=== PATIENT | male | born 1990 | race Caucasian/White ===

== ENCOUNTER 2020-10-08 12:30 | Emergency (ER) | payer OTHER ==
[~2020-10-08 12:30] MED LIST: ADMELOG SO100 UNIT/1 SC; AUGMENTIN 875-1 EACH PO; BACTRIM 400-801 EACH PO; BASAGLAR K100 UNIT/1 SC; NORCO 5-325 TA1 EACH PO; PAXIL20 MG PO; ZYVOX600 MG PO
[2020-10-08 13:16] LABS: BASOPHIL 0.5 % (0-2); EOSINOPHIL 1.7 % (0-5); HCT 41.9 % (42.0-52.0); HGB 14.1 g/dl (13.2-18.0); LYMPHOCYTE 29.3 % (15-48); MCH 29.6 pg (25.0-31.0); MCHC 33.7 g/dL (32.0-36.0); MCV 87.8 fL (78.0-100.0); MONOCYTE 7.6 % (0-12); MPV 9.4 fL (6.0-9.5); NEUTROPHIL 60.4 % (41-80); NRBC 0; PLT 282 K/uL (150-400); RBC 4.77 M/uL (4.70-6.00); RDW 12.4 % (11.5-14.0); WBC 6.5 K/uL (4.0-10.5)
[2020-10-08 13:24] LABS: BILIRUBIN NEGATIVE (NEGATIVE); BLOOD NEGATIVE Ery/uL (NEGATIVE); CLARITY CLEAR (CLEAR); COLOR YELLOW (YELLOW); GLUCOSE (U) TRACE mg/dL (NORMAL); LEUKOCYTES NEGATIVE Leu/uL (NEGATIVE); NITRITE NEGATIVE (NEGATIVE); PROTEIN NEGATIVE (NEGATIVE); UROBILINOGEN 0.2 mg/dL (0.2-1.0)
[2020-10-08 13:30] LABS: AMPHETAMINES NEGATIVE (NEGATIVE); BARBITURATES NEGATIVE (NEGATIVE); ECSTASY (MDMA) NEGATIVE (NEGATIVE); MARIJUANA (THC) NEGATIVE (NEGATIVE); METHADONE NEGATIVE (NEGATIVE); OPIATES NEGATIVE (NEGATIVE); OXYCODONE NEGATIVE (NEGATIVE)
[2020-10-08 13:49] LABS: ALBUMIN 3.2 g/dL (3.4-5.0); BILIRUBIN - TOTAL 0.3 mg/dL (0.2-1.0); BUN/CREAT RATIO (CALC) 18.1 RATIO; CREATININE 0.83 mg/dL (0.67-1.17); GLOBULIN (CALCULATION) 3.2 g/dL; POTASSIUM 3.9 mmol/L (3.5-5.1); TOTAL PROTEIN 6.4 g/dL (6.4-8.2)
== END 2020-10-08 14:18 | disposition home or self-care (01) ==
LOC: FER 12:30
PROVIDERS: Nurse Practitioner Family
DX: E10.649 Type 1 diabetes mellitus with hypoglycemia without coma (principal); F17.290 Nicotine dependence, other tobacco product, uncomplicated
CPT/HCPCS: 36415; 80053; 80305; 81003; 85025; 99283

== ENCOUNTER 2020-11-18 12:06 | Emergency (ER) | payer OTHER ==
[2020-11-18 12:46] LABS: BASOPHIL 0.3 % (0-2); EOSINOPHIL 0.3 % (0-5); HCT 47.3 % (42.0-52.0); HGB 15.6 g/dl (13.2-18.0); LYMPHOCYTE 9.9 % (15-48); MCH 29.8 pg (25.0-31.0); MCV 90.4 fL (78.0-100.0); MONOCYTE 5.2 % (0-12); MPV 9.6 fL (6.0-9.5); NEUTROPHIL 83.9 % (41-80); NRBC 0; PLT 275 K/uL (150-400); RBC 5.23 M/uL (4.70-6.00); RDW 12.8 % (11.5-14.0); WBC 11.6 K/uL (4.0-10.5)
[2020-11-18 13:03] LABS: ALBUMIN 4.1 g/dL (3.4-5.0); BILIRUBIN - TOTAL 0.5 mg/dL (0.2-1.0); BUN/CREAT RATIO (CALC) 19.2 RATIO; CREATININE 0.78 mg/dL (0.67-1.17); GLOBULIN (CALCULATION) 3.8 g/dL; POTASSIUM 4.3 mmol/L (3.5-5.1); TOTAL PROTEIN 7.9 g/dL (6.4-8.2)
[2020-11-18 13:09] LABS: BILIRUBIN NEGATIVE (NEGATIVE); BLOOD NEGATIVE Ery/uL (NEGATIVE); CLARITY CLEAR (CLEAR); COLOR YELLOW (YELLOW); GLUCOSE (U) 3+ mg/dL (NORMAL); LEUKOCYTES NEGATIVE Leu/uL (NEGATIVE); NITRITE NEGATIVE (NEGATIVE); PROTEIN NEGATIVE (NEGATIVE); UROBILINOGEN 0.2 mg/dL (0.2-1.0)
== END 2020-11-18 16:51 | disposition home or self-care (01) ==
LOC: FER 12:06
PROVIDERS: Emergency Medicine
DX: E11.649 Type 2 diabetes mellitus with hypoglycemia without coma (principal); T38.3X5A Adverse effect of insulin and oral hypoglycemic [antidiabetic] drugs, initial encounter; F17.290 Nicotine dependence, other tobacco product, uncomplicated; Z79.4 Long term (current) use of insulin
CPT/HCPCS: 36415; 80053; 81003; 85025; 99285

== ENCOUNTER 2020-12-11 16:24 | Emergency (ER) | payer OTHER ==
[2020-12-11 17:00] LABS: BASOPHIL 0.3 % (0-2); EOSINOPHIL 0.3 % (0-5); HCT 43.4 % (42.0-52.0); HGB 14.7 g/dl (13.2-18.0); LYMPHOCYTE 17.6 % (15-48); MCH 29.8 pg (25.0-31.0); MCHC 33.9 g/dL (32.0-36.0); MPV 9.2 fL (6.0-9.5); NEUTROPHIL 75.6 % (41-80); NRBC 0; PLT 314 K/uL (150-400); RBC 4.93 M/uL (4.70-6.00); RDW 12.5 % (11.5-14.0); WBC 11.4 K/uL (4.0-10.5)
[2020-12-11 17:23] LABS: BUN/CREAT RATIO (CALC) 15.2 RATIO; CREATININE 0.79 mg/dL (0.67-1.17); POTASSIUM 3.5 mmol/L (3.5-5.1)
== END 2020-12-11 19:57 | disposition home or self-care (01) ==
LOC: FER 16:24
PROVIDERS: Nurse Practitioner Family
DX: E10.649 Type 1 diabetes mellitus with hypoglycemia without coma (principal)
CPT/HCPCS: 36415; 80048; 85025; 99283

== ENCOUNTER 2020-12-23 15:38 | Inpatient (IN) | payer OTHER ==
[~2020-12-23] VITALS: Ht 177.8 cm; Wt 85.8 kg
[2020-12-23 16:15] LABS: BASOPHIL 0.5 % (0-2); EOSINOPHIL 0.1 % (0-5); HCT 50.6 % (42.0-52.0); HGB 17.2 g/dl (13.2-18.0); LYMPHOCYTE 10.1 % (15-48); MCH 29.9 pg (25.0-31.0); MONOCYTE 4.5 % (0-12); MPV 10.5 fL (6.0-9.5); NEUTROPHIL 84.2 % (41-80); NRBC 0; PLT 368 K/uL (150-400); RBC 5.75 M/uL (4.70-6.00); WBC 18.5 K/uL (4.0-10.5)
[2020-12-23 16:58] LABS: ALBUMIN 4.7 g/dL (3.4-5.0); BILIRUBIN - TOTAL 0.4 mg/dL (0.2-1.0); BUN/CREAT RATIO (CALC) 23.3 RATIO; CREATININE 1.33 mg/dL (0.67-1.17); GLOBULIN (CALCULATION) 4.3 g/dL; POTASSIUM 5.4 mmol/L (3.5-5.1)
[2020-12-23 17:53] LABS: BILIRUBIN NEGATIVE (NEGATIVE); BLOOD 2+ Ery/uL (NEGATIVE); CLARITY CLEAR (CLEAR); COLOR YELLOW (YELLOW); GLUCOSE (U) 3+ mg/dL (NORMAL); LEUKOCYTES NEGATIVE Leu/uL (NEGATIVE); NITRITE NEGATIVE (NEGATIVE); PROTEIN TRACE (LOW) mg/dL (NEGATIVE); SPECIFIC GRAVITY >=1.030 (1.001-1.030); UROBILINOGEN 0.2 mg/dL (0.2-1.0); pH 5.5 (5.0-9.0)
[2020-12-23 18:17] LABS: BACTERIA TRACE; MUCOUS TRACE
--- NOTE | 2020-12-23 18:46 | NUR ---
REPORT FROM [facility] IN ER. TRANSPORTED BY STRETCHER TO ICU2
[2020-12-23 19:32] LABS: BUN/CREAT RATIO (CALC) 26.5 RATIO; CREATININE 1.17 mg/dL (0.67-1.17); POTASSIUM 4.9 mmol/L (3.5-5.1)
[2020-12-23] MEDS ORDERED: BASAGLAR K100 UNIT/1 SC (19:34)
[2020-12-23] MEDS ORDERED: DIVALPROEX SOD250 M1 PO (19:34)
[2020-12-23 23:12] LABS: BUN/CREAT RATIO (CALC) 22.5 RATIO; CREATININE 1.11 mg/dL (0.67-1.17); POTASSIUM 4.9 mmol/L (3.5-5.1)
[2020-12-24 03:11] LABS: ALBUMIN 3.9 g/dL (3.4-5.0); BILIRUBIN - DIRECT 0.1 mg/dL (0.00-0.20); BILIRUBIN - TOTAL 0.4 mg/dL (0.2-1.0); GLOBULIN (CALCULATION) 3.4 g/dL; MAGNESIUM 2.1 mg/dL (1.8-2.4); TOTAL PROTEIN 7.3 g/dL (6.4-8.2)
[2020-12-24 03:12] LABS: BUN/CREAT RATIO (CALC) 19.6 RATIO; CREATININE 0.97 mg/dL (0.67-1.17); POTASSIUM 4.6 mmol/L (3.5-5.1)
[2020-12-24 03:25] LABS: BASOPHIL 0.2 % (0-2); EOSINOPHIL 0 % (0-5); HCT 43.8 % (42.0-52.0); HGB 15.3 g/dl (13.2-18.0); LYMPHOCYTE 9.5 % (15-48); MCH 30.2 pg (25.0-31.0); MCHC 34.9 g/dL (32.0-36.0); MCV 86.4 fL (78.0-100.0); MONOCYTE 7.4 % (0-12); MPV 10.3 fL (6.0-9.5); NEUTROPHIL 82.3 % (41-80); NRBC 0; PLT 282 K/uL (150-400); RBC 5.07 M/uL (4.70-6.00); RDW 12.3 % (11.5-14.0)
[2020-12-24 07:37] LABS: BUN/CREAT RATIO (CALC) 18.7 RATIO; CREATININE 0.91 mg/dL (0.67-1.17); POTASSIUM 4.1 mmol/L (3.5-5.1)
[2020-12-24 13:39] LABS: BUN 13 mg/dL (7-18); BUN/CREAT RATIO (CALC) 15.5 RATIO; CHLORIDE 104 mmol/L (98-107); CO2 (BICARBONATE) 23 mmol/L (21-32); CREATININE 0.84 mg/dL (0.67-1.17); GLUCOSE 234 mg/dL (74-106); POTASSIUM 3.8 mmol/L (3.5-5.1)
[2020-12-24 13:40] LABS: C-REACTIVE PROTEIN < 0.20 mg/dL (<=0.90)
[2020-12-24 19:13] LABS: BUN/CREAT RATIO (CALC) 12.4 RATIO; CREATININE 0.97 mg/dL (0.67-1.17); POTASSIUM 3.3 mmol/L (3.5-5.1)
[2020-12-25 05:29] LABS: BASOPHIL 0.3 % (0-2); EOSINOPHIL 0.7 % (0-5); HCT 36.9 % (42.0-52.0); HGB 13.1 g/dl (13.2-18.0); LYMPHOCYTE 36.9 % (15-48); MCH 30.3 pg (25.0-31.0); MCHC 35.5 g/dL (32.0-36.0); MCV 85.2 fL (78.0-100.0); MONOCYTE 8.4 % (0-12); MPV 9.8 fL (6.0-9.5); NEUTROPHIL 53.4 % (41-80); NRBC 0; PLT 219 K/uL (150-400); RBC 4.33 M/uL (4.70-6.00); RDW 12.6 % (11.5-14.0); WBC 9.8 K/uL (4.0-10.5)
[2020-12-25 05:52] LABS: ALBUMIN 3.1 g/dL (3.4-5.0); BILIRUBIN - TOTAL 0.6 mg/dL (0.2-1.0); BUN/CREAT RATIO (CALC) 13.2 RATIO; CREATININE 0.76 mg/dL (0.67-1.17); GLOBULIN (CALCULATION) 3.1 g/dL; MAGNESIUM 1.7 mg/dL (1.8-2.4); POTASSIUM 3.1 mmol/L (3.5-5.1); TOTAL PROTEIN 6.2 g/dL (6.4-8.2)
[2020-12-25] MEDS ORDERED: ADMELOG SO100 UNIT/1 SC (07:03)
[2020-12-25] MEDS ORDERED: BASAGLAR K100 UNIT/1 SC ×2 (07:03→07:12)
--- NOTE | 2020-12-25 10:07 | NUR ---
DISCHARGE INSTRUCTION GIVEN TO PATIENT AND GRANDMOTHER. VERBALIZED INSTRUCTIONS. PRESCRIPTIONS FOR INSULIN GIVEN. DISCHARGED BY WHEELCHAIR TO FRONT DOOR.
== END 2020-12-25 10:00 | disposition home or self-care (01) | DRG 638 ==
LOC: FER 15:38 → FICU 16:59
PROVIDERS: Nurse Practitioner; Physician Assistant; ADMIT Family Medicine
DX: E10.10 Type 1 diabetes mellitus with ketoacidosis without coma (principal); N17.9 Acute kidney failure, unspecified; D72.829 Elevated white blood cell count, unspecified; E87.5 Hyperkalemia; E87.6 Hypokalemia; Z91.19 Patient's noncompliance with other medical treatment and regimen; Z20.822 Contact with and (suspected) exposure to COVID-19; E86.0 Dehydration
CPT/HCPCS: 36415; 36600; 71045; 80048; 80053; 80076; 81001; 82009; 82550; 82803; 82962; 83036; 83735; 84145; 85025; 86140; 87040; 87880; 93005; C9113; J1650; J1815; J2405; J2550; J7030; U0002